=== PATIENT | female | born 1985 | race Caucasian/White ===

== ENCOUNTER 2024-03-10 07:20 | Emergency (ER) | payer BC, OTHER ==
[2024-03-10] MEDS ORDERED: ASPIRIN 81 MG CHEWABLE TABLET ONE (07:46)
[2024-03-10 08:04] LABS: Absolute Eosinophils 0.1 K/uL (0-0.5); Absolute Lymphocytes (CBC) 2.4 K/uL (0.7-4.9); Absolute Monocytes 0.7 K/uL (0.1-1.3); Absolute Neutrophil 5.5 K/uL (1.8-8.0); Basophils % 0.5 % (0-1.3); Eosinophils % 1.6 % (0-4.4); Hematocrit 37.3 % (36.0-45.0); Hemoglobin 12.5 g/dL (12.0-15.0); Lymphocytes % 27.2 % (15.3-44.8); MCH 27.8 pg (27.0-35.0); MCHC 33.6 g/dL (32.0-36.0); MCV 82.5 fL (80-100); MPV 7.6 fL (7.6-11.3); Monocytes % 8.2 % (3.3-12.3); Neutrophils % 62.5 % (41.7-73.7); Platelets 345 thou/uL (152-406); RBC Red Blood Cell Count 4.52 M/uL (3.86-4.86); Red Cell Distribution Width 14.2 % (12.1-15.2)
--- NOTE | 2024-03-10 08:16 | RAD REPORT ---
Procedure: Chest Single View HISTORY: Chest pain COMPARISON: none FINDINGS: The lungs appear clear of acute infiltrate. No significant pleural effusion noted. The heart is normal size. IMPRESSION: No acute abnormality is displayed.
[2024-03-10 08:29] LABS: AST/SGOT 11 U/L (15-37); Albumin 3.6 g/dL (3.4-5.0); Alkaline Phosphatase 50 U/L (45-117); Anion Gap 11.8 mEq/L (5.0-15.0); BUN Blood Urea Nitrogen 13 mg/dL (7-18); Bicarbonate 23 mEq/L (21-32); Bilirubin Total 0.2 mg/dL (0.2-1.0); Globulin 3.6 g/dL (2.3-3.5); Glomerular Filtration Rate 98 ml/min (=/>90); Glucose Level 88 mg/dL (74-106); Lipase 39 U/L (13-75); Magnesium 2.1 mg/dL (1.6-2.4); Potassium 3.8 mEq/L (3.5-5.1); Protein, Total 7.2 g/dL (6.4-8.2); Sodium Level 139 mEq/L (136-145)
[2024-03-10 08:30] LABS: ALT/SGPT < 14 U/L (13-56); Bilirubin Direct < 0.2 mg/dL (0-0.2); Troponin High Sensitivity < 3.0 pg/mL (<58.9)
--- NOTE | 2024-03-10 08:45 | ER ---
Nurse's Notes [facility] Name: Katelynn Mirza Age: 38 yrs Sex: Female : 1985 Arrival Date: 03/10/2024 Time: 07:20 Bed 7 Private MD: Diagnosis: Chest pain, unspecified Presentation: 03/10 07:31 Chief complaint: Patient states: couple days ago had some pressure on left side of iw chest, intermittent, feels like I pulled something , now the pain has spread across chest and back and into my rib cage. Coronavirus screen: At this time, the client does not indicate any symptoms associated with coronavirus-19. Ebola Screen: No symptoms or risks identified at this time. Initial Sepsis Screen: Does the patient meet any 2 criteria? No. Patient's initial sepsis screen is negative. Does the patient have a suspected source of infection? No. Patient's initial sepsis screen is negative. Risk Assessment: Do you want to hurt yourself or someone else? Patient reports no desire to harm self or others. Onset of symptoms was March 07, 2024. 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 - Infectious Disease History:: Denies. - Social history:: Smoking status: Reported history of juuling and/or vaping. Screenin:57 [facility] ED Fall Risk Assessment (Adult) History of falling in the last 3 months, kc6 including since admission No falls in past 3 months (0 pts) Confusion or Disorientation No (0 pts) Intoxicated or Sedated No (0 pts) Impaired Gait No (0 pts) Mobility Assist Device Used No (0 pt) Altered Elimination No (0 pt) Score/Fall Risk Level 0 - 2 = Low Risk Oriented to surroundings, Maintained a safe environment. Abuse screen: Denies threats or abuse. Denies injuries from another. Nutritional screening: No deficits noted. Tuberculosis screening: No symptoms or risk factors identified. Assessment: 07:58 General: Appears in no apparent distress. comfortable, well groomed, well developed, kc6 Behavior is calm, cooperative, appropriate for age. Pain: Complains of pain in mid-sternal area and left breast Pain radiates to back and abdomen Quality of pain is described as burning, Pain began 2-3 days ago. Is intermittent. Neuro: Level of Consciousness is awake, alert, obeys commands, Oriented to person, place, time, situation, Appropriate for age. Cardiovascular: Reports chest pain, Heart tones S1 S2 present Capillary refill < 3 seconds Rhythm is sinus rhythm. Respiratory: Airway is patent Trachea midline Respiratory effort is even, unlabored, Respiratory pattern is regular, symmetrical. GI: Abdomen is flat, non-distended, Bowel sounds present X 4 quads. Reports upper abdominal pain, indigestion, Patient currently denies diarrhea, nausea, vomiting. : No signs and/or symptoms were reported regarding the genitourinary system. EENT: No signs and/or symptoms were reported regarding the EENT system. Derm: No signs and/or symptoms reported regarding the dermatologic system. Skin is intact, is healthy with good turgor, Skin is pink, warm \T\ dry. Musculoskeletal: Circulation, motion, and sensation intact. Range of motion: intact in all extremities. 08:53 Reassessment: Patient appears in no apparent distress at this time. No changes from kc6 previously documented assessment. Patient and/or family updated on plan of care and expected duration. Pain level reassessed. Patient is alert, oriented x 3, equal unlabored respirations, skin warm/dry/pink. Vital Signs: 07:31 BP 136 / 88; Pulse 80; Resp 16; Temp 98.4; Pulse Ox 100% on R/A; Weight 68.04 kg; iw Height 5 ft. 7 in. ; Pain 5/10; 07:58 BP 119 / 82; Pulse 83; Resp 16 S; Pulse Ox 100% on R/A; kc6 08:53 BP 116 / 74; Pulse 80; Resp 17 S; Pulse Ox 100% on R/A; kc6 07:31 Body Mass Index 23.49 (68.04 kg, 170.18 cm) iw 07:31 Pain Scale: Adult iw ED Course: 07:25 Patient arrived in ED. sj2 07:25 Adan Whittaker DO is Attending Physician. ms3 07:32 Triage completed. iw 07:45 Alise Hardwick, RN is Primary Nurse. kc6 07:57 EKG done, by ED staff, reviewed by Adan Whittaker DO. Patient maintains SpO2 saturation kc6 greater than 95% on room air. 07:57 Patient has correct armband on for positive identification. Bed in low position. Call kc6 light in reach. Side rails up X 1. Adult w/ patient. front desk monitor on. Pulse ox on. NIBP on. Door closed. Noise minimized. Lights dimmed. Pillow given. 08:00 Initial lab(s) drawn, by me, sent to lab. Inserted saline lock: 20 gauge in right ap3 antecubital area, using aseptic technique. Blood collected. Flushed with 10 mL NS. 08:00 Arm band placed on. kc6 08:03 XRAY Chest (1 view) In Process Unspecified. EDMS 08:42 Ishan Terry DO is Referral Physician. ms3 08:54 No provider procedures requiring assistance completed. IV discontinued, intact, kc6 bleeding controlled, No redness/swelling at site. Pressure dressing applied. Administered Medications: 07:55 Drug: Aspirin PO Chewable Tablet 324 mg PO once; 81 mg tablets x 4 Route: PO; kc6 08:54 Follow up: Response: No adverse reaction kc6 Medication: 08:54 VIS not applicable for this client. kc6 Outcome: 08:44 Discharge ordered by MD. ms3 08:54 Discharged to home ambulatory, with significant other, kc6 08:54 Condition: good 08:54 Discharge instructions given to patient, significant other, Instructed on discharge instructions, follow up and referral plans. Demonstrated understanding of instructions, follow-up care, 08:54 Patient left the ED. kc6 Signatures: Dispatcher [employer] Abbi Perez RN RN iw Prokisch, Amanda, RN RN ap3 Adan Whittaker DO DO ms3 Alise Hardwick RN RN kc6 Miriam Reddy sj2
--- NOTE | 2024-03-10 08:45 | EDPHYS ---
Physician Documentation [facility] Name: Katelynn Mirza Age: 38 yrs Sex: Female : 1985 Arrival Date: 03/10/2024 Time: 07:20 Bed 7 Private MD: ED Physician Adan Whittaker HPI: 03/10 07:43 This 38 yrs old Female presents to ER via Ambulatory with complaints of Chest Pain, ms3 Back Injury. 07:43 Katelynn Mirza, a 38-year-old female, presents to the emergency department with a new ms3 onset of pain that began about two to three days ago. She describes a sensation starting near the sternum, feeling like fullness, and then developing into a sharp pain. Today, while sitting at work, she experienced an intensification of this sensation, which evolved into a full feeling that spread to her back, accompanied by muscle twitching. She rates her current discomfort as a 5 out of 10. She reports sweating but attributes it to anxiety over her symptoms. She denies shortness of breath, nausea, or vomiting. 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 - Infectious Disease History:: Denies. - Social history:: Smoking status: Reported history of juuling and/or vaping. ROS: 07:43 Constitutional: Negative for fever, and chills. ms3 07:43 Respiratory: Negative for shortness of breath, cough, wheezing, and pleuritic chest pain, Abdomen/GI: Negative for abdominal pain, nausea, vomiting, diarrhea, and constipation, MS/Extremity: Negative for injury and deformity, Skin: Negative for injury, rash, and discoloration, 07:43 Cardiovascular: Positive for chest pain, 07:43 Back: Positive for radiated pain, Exam: 07:43 Constitutional: This is a well developed, well nourished patient who is awake, alert, ms3 and in no acute distress. Chest/axilla: Normal chest wall appearance and motion. Nontender with no deformity. Cardiovascular: Regular rate and rhythm with a normal S1 and S2. No gallops, murmurs, or rubs. Normal PMI, no JVD. No pulse deficits. Respiratory: Lungs have equal breath sounds bilaterally, clear to auscultation and percussion. No rales, rhonchi or wheezes noted. No increased work of breathing, no retractions or nasal flaring. Abdomen/GI: Soft, non-tender, with normal bowel sounds. No distension or tympany. No guarding or rebound. No evidence of tenderness throughout. Skin: Warm, dry with normal turgor. Normal color with no rashes, no lesions, and no evidence of cellulitis. MS/ Extremity: Pulses equal, no cyanosis. Neurovascular intact. Full, normal range of motion. 07:55 ECG was reviewed by the Attending Physician. ms3 Vital Signs: 07:31 BP 136 / 88; Pulse 80; Resp 16; Temp 98.4; Pulse Ox 100% on R/A; Weight 68.04 kg; iw Height 5 ft. 7 in. ; Pain 5/10; 07:58 BP 119 / 82; Pulse 83; Resp 16 S; Pulse Ox 100% on R/A; kc6 08:53 BP 116 / 74; Pulse 80; Resp 17 S; Pulse Ox 100% on R/A; kc6 07:31 Body Mass Index 23.49 (68.04 kg, 170.18 cm) iw 07:31 Pain Scale: Adult iw MDM: 07:42 Medical Screening Exam initiated ms3 07:43 Differential diagnosis: abnormal EKG, acute myocardial infarction, acute pericarditis, ms3 anxiety, coronary artery disease chest wall pain, cholecystitis, Cholelithiasis costochondritis, gastritis. 08:45 HEART Score: History: Slightly Suspicious (0), ECG: Normal (0), Age: < or = 45 years ms3 (0), Risk Factors: No Risk Factors Known (0), Troponin: < or = 1 x Normal Limit (0), Total Score = 0. The patient was given aspirin in the Emergency Department. Data reviewed: vital signs, nurses notes, lab test result(s), EKG, radiologic studies, and as a result, I will discharge patient. I considered the following discharge prescriptions or medication management in the emergency department Medications were administered in the Emergency Department. See MAR. Independent interpretation of the following test(s) in the Emergency Department EKG: See my EKG interpretation above. Counseling: I had a detailed discussion with the patient and/or guardian regarding the historical points, exam findings, and any diagnostic results supporting the discharge/admit diagnosis, lab results, radiology results, the need for outpatient follow up, to return to the emergency department if symptoms worsen or persist or if there are any questions or concerns that arise at home. Special discussion: Based on the patient's history, exam, and Dx evaluation, there is no indication for emergent intervention or inpatient Tx. It is understood by the patient/guardian that if the Sx's persist or worsen they need to return immediately for re-evaluation. ED course: Discussed labs, chest x-ray, EKG with patient and her significant other. Patient to follow-up with Dr. Terry in 2 to 3 days. Patient understands and agrees with plan. All questions were answered. Return precautions discussed include worsening symptoms, or any other concerns. On reevaluation patient is alert and oriented x 4, no apparent distress, nontoxic-appearing, speaking full sentences.. 03/10 07:42 Order name: Basic Metabolic Panel; Complete Time: 08:35 ms3 03/10 07:42 Order name: CBC with Diff; Complete Time: 08:17 ms3 03/10 07:42 Order name: LFT's; Complete Time: 08:35 ms3 03/10 07:42 Order name: Magnesium; Complete Time: 08:35 ms3 03/10 07:42 Order name: Troponin HS; Complete Time: 08:35 ms3 03/10 07:42 Order name: Lipase; Complete Time: 08:35 ms3 03/10 07:42 Order name: XRAY Chest (1 view); Complete Time: 08:17 ms3 03/10 07:42 Order name: Cardiac monitoring; Complete Time: 07:55 ms3 03/10 07:42 Order name: EKG - Nurse/Tech; Complete Time: 07:55 ms3 03/10 07:42 Order name: IV Saline Lock; Complete Time: 07:55 ms3 03/10 07:42 Order name: Labs collected and sent; Complete Time: 07:55 ms3 03/10 07:42 Order name: O2 Per Protocol; Complete Time: 07:45 ms3 03/10 07:42 Order name: O2 Sat Monitoring; Complete Time: 07:45 ms3 EC:55 Rate is 84 beats/min. Rhythm is regular. QRS [place] is Normal. [place] interval is normal. QRS ms3 interval is normal. Clinical impression: NSR w/ Non-specific ST/T Changes. Interpreted by me. Reviewed by me. Administered Medications: 07:55 Drug: Aspirin PO Chewable Tablet 324 mg PO once; 81 mg tablets x 4 Route: PO; kc6 08:54 Follow up: Response: No adverse reaction kc6 Disposition Summary: 03/10/24 08:44 Discharge Ordered Notes: Location: Home ms3 Condition: Stable ms3 Diagnosis - Chest pain, unspecified ms3 Followup: ms3 - With: Ishan Terry, DO - When: 2 - 3 days - Reason: Recheck today's complaints Discharge Instructions: - Discharge Summary Sheet ms3 - Nonspecific Chest Pain, Adult ms3 Forms: - Medication Reconciliation Form ms3 - Antibiotic Education ms3 - Prescription Opioid Use ms3 - Patient Portal Instructions ms3 - Leadership Thank You Letter ms3 Signatures: Dispatcher [employer] EDAbbi Ojeda, RN Adan Gutierrez DO DO ms3 Alise Hardwick RN RN kc6 Corrections: (The following items were deleted from the chart) 07:43 07:42 BASIC METABOLIC PANEL+C.LAB.BRZ ordered. EDMS EDMS 07:43 07:42 CBC+H.LAB.BRZ ordered. EDMS EDMS 07:43 07:42 HEPATIC FUNCTION+C.LAB.BRZ ordered. EDMS EDMS 07:43 07:42 MAGNESIUM+C.LAB.BRZ ordered. EDMS EDMS 07:43 07:42 Troponin High Sensitivity+C.LAB.BRZ ordered. EDMS EDMS 07:43 07:42 LIPASE+C.LAB.BRZ ordered. EDMS EDMS 07:43 07:43 Chest Single View+RAD.RAD.BRZ ordered. EDMS EDMS
[2024-03-11 16:37] VITALS: BP 116/74; TEMP 98.4; O2SAT 100
--- NOTE | 2024-03-13 12:08 | EKG ---
Test Date: 2024-03-10 Test Time: 07:51:29 Vacuum Cleaner Operator: MELY MEASUREMENT RESULTS: Intervals: Rate: 84 NH: 122 QRSD: 84 QT: 358 QTc: 423 [place]: P: 58 NH: 122 QRS: 75 T: 34 INTERPRETIVE STATEMENTS: Normal sinus rhythm Cannot rule out Anterior infarct, age undetermined Abnormal ECG No previous ECG available for comparison Electronically Signed On 03-13-24 12:07:19 FABRIC WORKER SUPERVISOR by Rush Loyd
== END 2024-03-10 08:54 | disposition home or self-care (01) ==
LOC: ER 07:20
DX: R07.9 Chest pain, unspecified (principal); E06.3 Autoimmune thyroiditis
CPT/HCPCS: 36415; 71045; 80048; 80076; 83690; 83735; 84484; 85025; 93005; 99284